=== PATIENT | male | born 1975 | race American Indian/Alaskan Native ===

== ENCOUNTER 2017-07-15 07:11 | Emergency (ER) | payer OTHER ==
[2017-07-15 07:24] VITALS: TEMP 97.7
--- NOTE | 2017-07-15 07:39 | ED PDOC ---
Arrival/HPI - History of Present Illness Time/Duration: Prior to Arrival, 4-6 hours Symptom Onset: Sudden Symptom Course: Resolved Severity Level: 1 Activities at Onset: Rest - General Chief Complaint: Chest Pain - History of Present Illness Narrative History of Present Illness (Text): 07/15/17 07:31 42M presents to [facility] ED w/ intermittent chest pain that that waxes and wanes worse 7/10 that started earlier this morning after cocaine and ETOH use last night. Patient stated he has had this chest pain in the past when he did cocaine. Currently chest pain is resolved. Conversing however sleeping during encounter. Denies current: fevers, chills, chest pain, shortness of breath, nausea, vomiting, diarrhea, acute changes in vision, numbness/tingling in extremities PMH: none PSH: Denies ALL: NKDA Socialhx: Works in [place], lives in [place]. Does cocaine and heroine, no IV drug use. +ETOH, and social Tobacco use PMD: none ([place]) Past Medical History - Provider Review Nursing Documentation Reviewed: Yes - Travel History Have you recently traveled outside [place] w/in the past 3 mons?: No - Past History Past History: Non-Contributing Family/Social History - Physician Review Nursing Documentation Reviewed: Yes Family/Social History: Other (non-contributory) Hx Alcohol Use: Yes Hx Substance Use: Yes Route: Oral, Smoking/Inhalation Allergies/Home Meds Allergies/Adverse Reactions: Allergies No Known Allergies Allergy (Verified 07/15/17 07:32) Home Medications: Home Meds Medication Instructions Recorded Confirmed No Known Home Med 07/15/17 07/15/17 Review of Systems - Review of Systems Constitutional: absent: Fatigue, Fevers Eyes: absent: Vision Changes, Photophobia ENT: absent: Hearing Changes, Tinnitus, TMJ Pain Respiratory: absent: SOB, Cough, Sputum, Wheezing Cardiovascular: Chest Pain. absent: Palpitations, Edema, Calf Pain Gastrointestinal: absent: Abdominal Pain, Stool Changes, Constipation, Nausea, Vomiting Genitourinary Male: absent: Dysuria, Hematuria Musculoskeletal: absent: Arthralgias, Neck Pain Skin: absent: Rash, Pruritis, Skin Lesions Neurological: absent: Headache, Dizziness, Focal Weakness Endocrine: absent: Diaphoresis Hemo/Lymphatic: absent: Adenopathy Psychiatric: absent: Suicidal Ideation Physical Exam Vital Signs Reviewed: Yes Temperature: Afebrile Blood Pressure: Normal Pulse: Regular Respiratory Rate: Normal Appearance: Positive for: Well-Appearing, Non-Toxic, Comfortable. No: Ill- Appearing, Unkept Pain Distress: None Mental Status: Positive for: Alert and Oriented X 3 - Systems Exam Head: Present: Atraumatic Pupils: Present: Sluggish Extroacular Muscles: Present: EOMI Conjunctiva: Present: Normal Neck: No: Normal Range of Motion Respiratory/Chest: Present: Clear to Auscultation, Good Air Exchange. No: Respiratory Distress, Accessory Muscle Use Abdomen: Present: Other (soft). No: Tenderness, Distention Upper Extremity: Present: Normal Inspection, NORMAL PULSES Lower Extremity: Present: Normal Inspection, NORMAL PULSES. No: Edema, CALF TENDERNESS Neurological: Present: GCS=15, Speech Normal Skin: Present: Warm, Normal Color Psychiatric: Present: Alert, Oriented x 3 Vital Signs Temp Pulse Resp BP Pulse Ox 07/15/17 09:11 78 17 127/82 99 07/15/17 07:23 97.7 F 78 10 L 136/95 H 97 Medical Decision Making - Lab Interpretations I have reviewed the lab results: Yes - EKG Interpretation Interpreted by ED Physician: Yes Type: 12 lead EKG Comparison: No previous EKG avail. ED Course and Treatment: 07/15/17 07:55 Seen and examined with the resident. Our history and physical exam reveals a young man who was on an alcohol and drug binge yesterday and developed chest pain. He is currently chest pain-free. No dyspnea. He reports that he was on his way to work and couldn't stand the pain, but it has since resolved. 07/15/17 09:30 EKG shows normal sinus rhythm rate approximately [address] or T-wave changes (Tolerico,Armando) 07/15/17 07:43 CBC/CMP/Trops UDS IVF EKG/CXR Monitor Vitals Dispo/Reasses Discussed w/ patient in detail about rehab drug facilities. Provided information about clinics in the area that he can receive help for substance and ETOH abuse. 07/15/17 11:14 UA negative UDS + for Opiates and Cocaine Currently AAOx3 ([place]) - Lab Interpretations Narrative Lab Interpretation (Text): 07/15/17 10:45 WBC:13.6 2/2 reactive use of cocaine BUN- elevated at 20 2/2 dehydration Creatinine Kinase- elevated at 300. Trops CK-MB- WNL ([place]) Lab Results: 07/15/17 08:00 07/15/17 08:00 Lab Results 07/15/17 11:00: Urine Color Yellow, Urine Appearance Clear, Urine pH 6.0, Ur Specific [place] >= 1.030, Urine Protein Negative, Urine Glucose (UA) Negative, Urine Ketones 40 H, Urine Blood Negative, Urine Nitrate Negative, Urine Bilirubin Negative, Urine Urobilinogen 0.2, Ur Leukocyte Esterase Negative 07/15/17 10:31: Urine Opiates Screen Positive H, Urine Methadone Screen Negative , Ur Barbiturates Screen Negative, Ur Phencyclidine Scrn Negative, Ur Amphetamines Screen Negative, U Benzodiazepines Scrn Negative, U Oth Cocaine Metabols Positive H, U Cannabinoids Screen Negative 07/15/17 08:00: Sodium 140, Potassium 4.2, Chloride 103, Carbon Dioxide 26, Anion Gap 16, BUN 27 H, Creatinine 1.0, Est GFR ( Amer) > 60, Est GFR ( Non-Af Amer) > 60, Random Glucose 91, Calcium 9.8, Total Bilirubin 0.5, AST 35, ALT 40, Alkaline Phosphatase 56, Lactate Dehydrogenase 508, Total Creatine Kinase 342 H, CK-MB (CK-2) 2.7, CK-MB (CK-2) % Cancelled, Troponin I < 0.01, Total Protein 7.7, Albumin 4.4, Globulin 3.2, Albumin/Globulin Ratio 1.4 07/15/17 08:00: WBC 13.6 H, RBC 4.54, Hgb 12.6 L, Hct 38.7 L, MCV 85.2, MCH 27.8 , MCHC 32.6, RDW 13.3, Plt Count 268, MPV 9.1, Gran % 78.8 H, Lymph % (Auto) 14.0 L, [place] % (Auto) 7.1 H, Eos % (Auto) 0.0 L, Baso % (Auto) 0.1, Gran # 10.69 H, Lymph # (Auto) 1.9, [place] # (Auto) 1.0 H, Eos # (Auto) 0.0, Baso # (Auto ) 0.02 - RAD Interpretation Radiology Orders: 07/15/17 07:45 CHEST PORTABLE [RAD] Stat - EKG Interpretation EKG Interpretation (Text): 07/15/17 07:43 NSR no abnormalities ([place]) - Medication Orders Current Medication Orders: Discontinued Medications Sodium Chloride (Sodium Chloride 0.9%) 1,000 mls @ 999 mls/hr IV .Q1H1M STA Stop: 07/15/17 08:45 Last Admin: 07/15/17 08:07 Dose: 999 mls/hr eMAR Start Stop Document 07/15/17 08:07 SANDRA (Rec: 07/15/17 08:07 SANDRA [id number]) Intravenous Solution Start Date 07/15/17 Start Time 08:07 End Date 07/15/17 End time 09:07 Total Infusion Time 60 - PA / CORRESPONDENCE CLERK / Resident Statement /DO has reviewed & agrees with the documentation as recorded. MD/DO has examined the patient and agrees with the treatment plan. Disposition/Present on Arrival - Present on Arrival Any Indicators Present on Arrival: No History of DVT/PE: No History of Uncontrolled Diabetes: No Urinary Catheter: No History of Decub. Ulcer: No History Surgical Site Infection Following: None - Disposition Have Diagnosis and Disposition been Completed?: Yes Disposition Time: 11:16 Patient Plan: Discharge - Disposition Diagnosis: Cocaine abuse Disposition: HOME/ ROUTINE Patient Problems: Current Active Problems Problem Status Onset Cocaine abuse Acute Condition: STABLE Discharge Instructions (ExitCare): Drug Abuse and Drug Addiction (DC), Drug Abuse Treatment Additional Instructions: Thank you for letting us take care of you today. You were treated for substance abuse intoxication. The emergency medical care you received today was directed at your acute symptoms. If you were prescribed any medication, please fill it and take as directed. It may take several days for your symptoms to resolve. Return to the Emergency Department if your symptoms worsen, do not improve, or if you have any other problems. Names contact information and locations of institutions for substance and alcohol abuse have bee provided in this packet. Some locations have been circled that are located close to you. Please contact your doctor or call one of the physicians/clinics you have been referred to that are listed on the Patient Visit Information form that is included in your discharge packet. Bring any paperwork you were given at discharge with you along with any medications you are taking to your follow up visit. Our treatment cannot replace ongoing medical care by a primary care provider (PCP) outside of the emergency department. Thank you for allowing the [facility] team to be part of your care today. Referrals: PCP,NO [Primary Care Provider] - Follow up with primary Forms: [employer] (Serbian)
[2017-07-15] MEDS ORDERED: Sodium Chloride 0.9% 1,000 ML IV STA (07:45)
[2017-07-15 08:14] LABS: BASO # 0.02 K/mm3 (0.0-2.0); BASO % 0.1 % (0.0-3.0); GRAN # 10.69 (1.4-6.5); GRAN % 78.8 % (50.0-68.0); HEMOGLOBIN 12.6 g/dL (14.0-18.0); LYMPH # 1.9 (1.2-3.4); MEAN CELL VOLUME 85.2 fl (80.0-105.0); MEAN CORPUSCULAR HEMOGLOBIN 27.8 pg (25.0-35.0); MEAN CORPUSCULAR HGB CONC 32.6 g/dl (31.0-37.0); MEAN PLATELET VOLUME 9.1 fl (7.0-11.0); MONO % 7.1 % (1.0-6.0); RBC 4.54 10^6/uL (3.5-6.1); RED CELL DISTRIBUTION WIDTH 13.3 % (11.5-14.5); WHITE BLOOD COUNT 13.6 10^3/ul (4.5-11.0)
[2017-07-15 08:21] LABS: ALB/GLOB RATIO 1.4 (1.1-1.8); ALBUMIN 4.4 g/dL (3.0-4.8); ALT/SGPT 40 U/L (7-56); AST/SGOT 35 U/L (17-59); BLOOD UREA NITROGEN 27 mg/dL (7-21); CALCIUM 9.8 mg/dL (8.4-10.5); GFR AFRICAN-AMERICAN > 60; GFR NON-AFRICAN AMERICAN > 60
[2017-07-15 08:33] LABS: TROPONIN I < 0.01 ng/mL
[2017-07-15 08:43] LABS: CK-MB 2.7 ng/mL (0.0-3.6)
[2017-07-15 09:14] VITALS: RESP 17
--- NOTE | 2017-07-15 09:20 | RAD ---
HISTORY: Chest pain COMPARISON: No prior. FINDINGS: LUNGS: No active pulmonary disease. PLEURA: No significant pleural effusion identified, no pneumothorax apparent. CARDIOVASCULAR: Normal. OSSEOUS STRUCTURES: No significant abnormalities. VISUALIZED UPPER ABDOMEN: Normal. OTHER FINDINGS: None. IMPRESSION: No active disease.
[2017-07-15 10:58] LABS: BARBITURATES, UR NEGATIVE (NEGATIVE)
[2017-07-15 11:02] LABS: BENZODIAZEPINES, UR NEGATIVE (NEGATIVE); OPIATES, UR POSITIVE (NEGATIVE); PHENCYCLIDINE, UR NEGATIVE (NEGATIVE)
[2017-07-15 11:12] LABS: URINE BILIRUBIN NEGATIVE (NEGATIVE); URINE BLOOD NEGATIVE (NEGATIVE); URINE GLUCOSE (UA) NEGATIVE (NEGATIVE); URINE LEUKOCYTE ESTERASE NEGATIVE Leu/uL (NEGATIVE); URINE PROTEIN NEGATIVE mg/dL (<30 mg/dL); URINE UROBILINOGEN 0.2 E.U./dL (<1 E.U./dL)
[2017-07-15 11:15] LABS: URINE APPEARANCE CLEAR (CLEAR); URINE COLOR YELLOW (YELLOW)
[2017-07-15 11:45] VITALS: BP 128/78; PULSE 75; O2SAT 100
--- NOTE | 2017-07-15 12:26 | CARD ---
APPROVED REPORT EKG Measurement Heart [id number] <Conclusion> Normal sinus rhythm Normal ECG
== END 2017-07-15 11:22 | disposition home or self-care (01) ==
LOC: ED 07:11
DX: F14.10 Cocaine abuse, uncomplicated (principal)
CPT/HCPCS: 71045; 80053; 80324; 80345; 80346; 80349; 80353; 80358; 80361; 81003; 82550; 82553; 83615; 83992; 84484; 85025; 93005; 96360; 99285; J7040